=== PATIENT | female | born 1970 | race Caucasian/White ===

== ENCOUNTER → 2020-05-27 13:05 | Outpatient (CLI) | payer OTHER, SELFPAY ==
--- NOTE | ~2020-05-27 | MM_ITS ---
EXAMINATION: MM screening [facility] BI w ricky HISTORY: Screening TECHNIQUE: Craniocaudal and mediolateral oblique 3-D tomosynthesis images were obtained and synthetic 2-D images were generated. CAD analysis was submitted and interpreted. COMPARISON: Comparison to multiple prior studies sequentially, with oldest reviewed study dated 07/12. BREAST PARENCHYMAL COMPOSITION: The breasts are heterogeneously dense, which may obscure small masses . FINDINGS: There is no evidence of suspicious mass, calcification, or architectural distortion to sugg est malignancy in either breast. There has been no suspicious interval change. IMPRESSION: 1. No mammographic evidence of malignancy. 2. Recommend routine screening mammography in one year. BI-RADS Category 1: Negative Reviewed, dictated and finalized at location D. [employer]
== END ==
PROVIDERS: Visit Provider Obstetrics & Gynecology
DX: Z12.31 Encounter for screening mammogram for malignant neoplasm of breast (principal)
CPT/HCPCS: 77063; 77067

== ENCOUNTER 2020-10-02 12:54 | Outpatient (RCR) | payer OTHER, SELFPAY ==
[2020-10-02] MEDS: diphenhydrAMINE HCl CAP 25 MG CAPSULE PO (13:26)
[2020-10-02] MEDS: ACETAMINOPHEN 325 MG TABLET 650 MG PO (13:26)
[2020-10-02] MEDS: FAMOTIDINE 20 MG TABLET PO (13:26)
[2020-10-02 13:34] VITALS: BP 107/64; PULSE 97; RESP 16; TEMP 36.9; O2SAT 95
[2020-10-02 15:35] VITALS: BP 117/72; PULSE 85; RESP 16; TEMP 36.8; O2SAT 95
--- NOTE | 2020-10-02 15:40 | PC.NURSE ---
Patient provided with discharge instructions and drug fact sheet prior to discharge. No questions at this time.
--- NOTE | 2020-10-05 08:42 | PC.NURSE ---
RN spoke with patient this morning regarding infusion from Monday10/02/20. She reports she is feeling better and had no side effects from treatment. She will be seeing her primary care provider for a follow up today on 10/05/20.
== END 2020-10-02 15:59 | disposition home or self-care (01) ==
LOC: AMCINF 12:54
PROVIDERS: PCP Internal Medicine; Visit Provider Internal Medicine Hematology & Oncology
DX: Z23 Encounter for immunization (principal); U07.1 COVID-19
CPT/HCPCS: A9270; J7050; M0243

== ENCOUNTER → 2021-01-05 16:07 | Outpatient (REF) | payer OTHER, SELFPAY | LOC: ANHLAB 16:07 | PROVIDERS: PCP Internal Medicine; Visit Provider Nurse Practitioner | DX: D22.71 Melanocytic nevi of right lower limb, including hip (principal) | CPT/HCPCS: 88304; 88305 ==

== ENCOUNTER → 2021-06-23 13:34 | Outpatient (CLI) | payer OTHER, SELFPAY ==
--- NOTE | ~2021-06-23 | MM_ITS ---
EXAMINATION: MM screening [facility] BI w ricky HISTORY: Screening mammogram TECHNIQUE: Craniocaudal and mediolateral oblique 3-D tomosynthesis images were obtained and synthetic 2-D images were generated. CAD analysis was submitted and interpreted. COMPARISON: 05/27/2020, 04/05/2018, 12/05/2017 BREAST PARENCHYMAL COMPOSITION: There are scattered areas of fibroglandular density. FINDINGS: There is no suspicious mass, calcification, or architectural distortion to suggest malignan cy in either breast. There has been no suspicious interval change. IMPRESSION: 1. No mammographic evidence of malignancy. 2. Recommend routine screening mammography in one year. BI-RADS Category 1: Negative Reviewed, dictated and finalized at location A.
== END ==
PROVIDERS: Visit Provider Obstetrics & Gynecology
DX: Z12.31 Encounter for screening mammogram for malignant neoplasm of breast (principal)
CPT/HCPCS: 77063; 77067

== ENCOUNTER → 2022-09-30 16:16 | Outpatient (CLI) | payer OTHER, SELFPAY ==
--- NOTE | ~2022-09-30 | MM_ITS ---
EXAMINATION: MM screening [facility] BI w ricky HISTORY: Screening mammogram TECHNIQUE: Craniocaudal and mediolateral oblique 3-D tomosynthesis images were obtained and synthetic 2-D images were generated. CAD analysis was submitted and interpreted. COMPARISON: 06/23/2021, 05/27/2020, 01/03/2019 BREAST PARENCHYMAL COMPOSITION: There are scattered areas of fibroglandular density. FINDINGS: No suspicious mass, calcification, or architectural distortion are identified in either john ast to suggest malignancy. There has been no suspicious interval change. IMPRESSION: 1. No mammographic evidence of malignancy. 2. Recommend routine screening mammography in one year. BI-RADS Category 1: Negative Reviewed, dictated and finalized at location A.
== END ==
PROVIDERS: PCP Obstetrics & Gynecology; Visit Provider Obstetrics & Gynecology
DX: Z12.31 Encounter for screening mammogram for malignant neoplasm of breast (principal)
CPT/HCPCS: 77063; 77067

== ENCOUNTER 2023-10-19 16:09 | Outpatient (CLI) | payer OTHER, SELFPAY ==
--- NOTE | ~2023-10-19 | MM_ITS ---
EXAMINATION: MM screening [facility] BI w ricky HISTORY: Screening TECHNIQUE: Craniocaudal and mediolateral oblique 3-D tomosynthesis images were obtained and synthetic 2-D images were generated. CAD analysis was submitted and interpreted. COMPARISON: Comparison to multiple prior studies sequentially, with oldest reviewed study dated 10/07. BREAST PARENCHYMAL COMPOSITION: Dense: The breasts are heterogeneously dense, which may obscure small masses FINDINGS: There is no evidence of suspicious mass, calcification, or architectural distortion to sugg est malignancy in either breast. There has been no suspicious interval change. IMPRESSION: 1. No mammographic evidence of malignancy. 2. Recommend routine screening mammography in one year. BI-RADS Category 1: Negative Reviewed, dictated and finalized at location B.
== END 2023-10-19 16:10 ==
LOC: MICIMG 16:10
PROVIDERS: PCP Physician Assistant Medical; Visit Provider Obstetrics & Gynecology
DX: Z12.31 Encounter for screening mammogram for malignant neoplasm of breast (principal)
CPT/HCPCS: 77063; 77067

== ENCOUNTER 2024-01-16 17:53 | Emergency (ER) | payer OTHER, SELFPAY ==
--- NOTE | ~2024-01-16 | CT_ITS ---
EXAMINATION: CT abdomen pelvis wo con DATE: 01/16/2024 19:19 INDICATION: Right flank pain. Urinary tract infection. Hematuria. TECHNIQUE: Computed tomography (CT) of the abdomen and pelvis was performed without intravenous contr ast. Automated exposure control and iterative reconstruction technique were employed. The dose-length product was 686.12 mGy-cm. COMPARISON: None FINDINGS: Lung bases are clear. Heart size is normal. No pericardial or pleural effusion. 2 cm centrally low at tenuation lesion with peripheral discontiguous rim calcification at the dome of the liver. No other h epatic lesions identified. Gallbladder, pancreas, bilateral adrenal glands and kidneys are normal. No urolithiasis or hydronephrosis. Splenosis in the left upper quadrant. Bowels including appendix are normal. Decompressed bladder, anteverted uterus and bilateral adnexa are unremarkable. No free intrap eritoneal gas or fluid. No pathologically enlarged abdominal or pelvic lymphadenopathy. Small fat-con taining umbilical hernia. IMPRESSION: 1. No urolithiasis or acute intra-abdominal/pelvic process. 2. Nonspecific 2 cm centrally low attenuation lesion with discontiguous coarse peripheral calcificati ons at the dome of the liver. The pattern of calcification would favor sequela of parasitic infection , prior hematoma or potentially cystadenoma/cystadenocarcinoma although other neoplasms cannot be abs olutely excluded. Would recommend further evaluation with pre and postcontrast MRI. 3. Small fat-containing umbilical hernia. 4. Splenosis which suggests prior splenectomy or trauma. Correlate with clinical history. Reviewed, dictated and finalized at location A. IMPRESSION: 1. No urolithiasis or acute intra-abdominal/pelvic process. 2. Nonspecific 2 cm centrally low attenuation lesion with discontiguous coarse peripheral calcifications at the dome of the liver. The pattern of calcificatio n would favor sequela of parasitic infection, prior hematoma or potentially cys tadenoma/cystadenocarcinoma although other neoplasms cannot be absolutely exclu ded. Would recommend further evaluation with pre and postcontrast MRI. 3. Small fat-containing umbilical hernia. 4. Splenosis which suggests prior splenectomy or trauma. Correlate with clinica l history.
[2024-01-16 17:55] VITALS: BP 142/87; PULSE 81; RESP 16; TEMP 36.3; O2SAT 99
[2024-01-16 19:37] LABS: BEDSIDEPREGUCG Negative (Negative)
--- NOTE | 2024-01-16 19:39 | ED.FEMALEGU ---
HPI - Female Genitourinary General Chief complaint: Urogenital-Female Stated complaint: KIDNEY STONE Time Seen by Provider: 01/16/24 18:57 Source: patient Mode of arrival: ambulatory Limitations: no limitations History of Present Illness HPI Narrative: Patient is a 53-year-old female, with PMH of splenectomy r/t ITP as a teenager, who presents the ED with report of R flank pain and UTI symptoms. Patient reports she has been having intermittent right-sided flank pain over the last 2-3 weeks. She notes history of 1 previous kidney stone 13 years ago and states pain is not as severe as it was then. It does radiate around slightly to her right lower abdomen. She then developed symptoms of a UTI this morning including dysuria, urgency, frequency. Hx of previous UTIs. She left a urine sample with her primary care doctor and was noted to have blood in the sample. Sent here for further evaluation and to rule out kidney stone. Denies nausea, vomiting, bowel issues, fevers. Related Data Home Medications Medication Instructions Recorded Confirmed aspirin 81 mg tablet,delayed 81 mg PO DAILY 11/02/21 05/18/23 release (Adult Low Dose Aspirin) Allergies Allergy/AdvReac Type Severity Reaction Status Date / Time prochlorperazine Allergy Mild TONGUE Verified 01/16/24 17:56 SWELLING Review of Systems Review of Systems: All systems reviewed & are unremarkable except as noted in HPI. All systems reviewed & are unremarkable except as noted in HPI and below PMFSH Surgical History Surgical History History of section History of splenectomy Family History Family History Father Hypertension Family history of malignant neoplasm of kidney Mother Family history of hypothyroidism Family history of malignant neoplasm of kidney Social History Social History Smoking status: Never smoker Exam Narrative: GENERAL: Well appearing, well-nourished, non-toxic, in no acute distress. HEAD: Normocephalic, atraumatic. RESPIRATORY: Airway patent, respirations nonlabored. Clear to auscultation bilaterally, no rales, rhonchi, wheezing. CARDIOVASCULAR: Regular rate and rhythm ABDOMINAL: Soft, nontender, nondistended. Normoactive BS. Mild positive CVA tenderness on right. MUSCULOSKELETAL: Moves all extremities. No gross deformities. SKIN: Warm, dry, normal color. NEURO: A&O X3. Speech clear. PSYCHIATRIC: Appropriate mood and affect. Normal interaction. Course Vital Signs Vital signs: Vital Signs Temperature 97.4 F L 01/16/24 17:55 Pulse Rate 81 01/16/24 17:55 Respiratory Rate 16 01/16/24 17:55 Blood Pressure 142/87 H 01/16/24 17:55 Pulse Oximetry 99 01/16/24 17:55 Temperature 97.4 F L 01/16/24 17:55 Pulse Rate 81 01/16/24 17:55 Respiratory Rate 16 01/16/24 17:55 Blood Pressure 142/87 H 01/16/24 17:55 Pulse Oximetry 99 01/16/24 17:55 MDM - Female Genitourinary MDM Narrative Medical decision making narrative: Patient presented to ED with several week history of right-sided flank pain, UTI symptoms since this morning. History of previous UTIs. Vital signs are stable upon arrival. She is afebrile here. In no acute distress. Did not want anything for pain. Basic laboratory studies showing minimal leukocytosis of 10.6. Mild thrombocytosis, consistent with previous records. CMP unremarkable. Urinalysis consistent with infection. Sent for cx. Ceftriaxone given in the ED. Will d/c on keflex. CT scan of abdomen/pelvis obtained and without acute injury or abdominal findings. No ureterolithiasis. No evidence of pyelonephritis. Does show abnormality of liver which may be sequela of previous infection/trauma versus cyst versus neoplasm, recommended MRI. Made patient aware of this. Patient does have h
[2024-01-16 19:47] LABS: Basophils Absolute Auto 0.1 K/mm3 (0.0-0.1); Basophils Percent Auto 0.8 % (0.2-1.2); Eosinophils Absolute Auto 0.3 K/mm3 (0-0.3); Eosinophils Percent Auto 2.4 % (0-4.4); Hematocrit 40.5 % (37.0-47.0); Hemoglobin 13.4 g/dL (12.0-15.0); Immature Granulocyte Absolute 0.03 K/mm3 (0.00-0.031); Immature Granulocyte Percent A 0.3 % (0-0.5); Lymphocytes Absolute Auto 4.15 K/mm3 (0.9-3.2); Mean Corpuscular HGB Conc 33.1 g/dl (32-36); Mean Corpuscular Hemoglobin 31.2 pg (26-34); Mean Corpuscular Volume 94.4 fl (80-100); Mean Platelet Volume 9.5 fl (7.4-10.4); Monocytes Percent Auto 9.2 % (2.6-8.5); Neutrophils Absolute Auto 5.1 K/mm3 (1.3-6.7); Neutrophils Percent Auto 48.3 % (45.5-73.1); Platelet Count Result 479 k/mm3 (150-375); Red Blood Count 4.29 M/mm3 (4.2-5.4); Red Cell Distribution Width 13.9 % (11.5-14.5); White Blood Count 10.6 K/mm3 (4.5-10.0)
[2024-01-16 20:07] LABS: Alanine Aminotransferase 20 U/L (6-35); Albumin Level 4.2 g/dL (3.5-5.1); Alkaline Phosphatase 78 U/L (38-126); Anion Gap 7 mmol/L (4-12); Aspartate Amino Transferase 23 U/L (14-36); Bilirubin,Total 0.3 mg/dL (0.2-1.3); Blood Urea Nitrogen 18 mg/dL (7-17); Calcium 9.6 mg/dL (8.4-10.2); Carbon Dioxide 27 mmol/L (22-30); Chloride 103 mmol/L (98-107); Estimated CRCL calculation 81 ml/min; Estimated Glomerular Filt Rate > 60; Glucose 85 mg/dL (65-110); Potassium 3.9 mmol/L (3.4-5.0); Sodium 137 mmol/L (137-145)
[2024-01-16 20:09] LABS: Add Urine Microscopic? YES; Appearance Urine Clear (Clear); Bacteria Urine None Seen /hpf; Bilirubin Urine 1+ (Negative); Blood Urine Negative (Negative); Color Urine Dark Yellow (Yellow); Glucose Urine UA Negative (Negative); Ketones Urine Negative (Negative); Leukocyte Esterase Ur 1+ LEU/UL (Negative); Need Manual Microscopic Reviewed; Nitrate Urine Positive (Negative); Non Pathogenic Casts 0-2; Protein Urine Negative (Negative); RBC Urine 0-2 /hpf (0-2); Specific Grav Ur 1.014 (1.001-1.035); Squamous Epithelial Cell Urine None Seen /hpf (Few); WBC Urine 21-50 /hpf (0-3); pH Urine 5.5 (5.0-9.0)
[2024-01-16 21:35] VITALS: BP 136/89; PULSE 74; RESP 18; O2SAT 100
== END 2024-01-16 21:35 | disposition home or self-care (01) ==
PROVIDERS: Emergency Provider Physician Assistant; PCP Physician Assistant Medical
DX: N30.00 Acute cystitis without hematuria (principal); K76.9 Liver disease, unspecified; Z87.442 Personal history of urinary calculi; Z90.81 Acquired absence of spleen; K42.9 Umbilical hernia without obstruction or gangrene; Z79.82 Long term (current) use of aspirin; Z79.899 Other long term (current) drug therapy
CPT/HCPCS: 36415; 74176; 80053; 81001; 81025; 85025; 85055; 87086; 96365; 99284; J0696

== ENCOUNTER 2024-02-09 12:58 | Outpatient (CLI) | payer OTHER, SELFPAY ==
--- NOTE | ~2024-02-09 | MR_ITS ---
EXAMINATION: MR abdomen wo/w con DATE: 02/09/2024 13:45 INDICATION: Liver mass. TECHNIQUE: Magnetic resonance imaging (MRI) of the abdomen was performed without and with 18 mL Multi Raz intravenous contrast. COMPARISON: CT abdomen and pelvis 01/16/2024 FINDINGS: There is a 15 mm peripherally calcified cyst in right hepatic lobe. There is splenosis in left upper quadrant. There is cystic thickening of the fundus of the gallbladder, consistent with adenomyomatosi s. The pancreas, adrenal glands, and kidneys are normal. There is an umbilical hernia containing fat. There are no dilated loops of bowel. There are no pathologically enlarged lymph nodes. There is no f ree intraperitoneal fluid. IMPRESSION: 1. 15 mm peripherally calcified cyst in right hepatic lobe, likely an old hematoma or old infection. Reviewed, dictated and finalized at location A. [employer]TER IMPRESSION: 1. 15 mm peripherally calcified cyst in right hepatic lobe, likely an old hemat migdalia or old infection.
== END 2024-02-09 12:59 | disposition home or self-care (01) ==
LOC: MICIMG 12:58
PROVIDERS: PCP Physician Assistant Medical; Visit Provider Physician Assistant Medical
DX: K76.9 Liver disease, unspecified (principal)
CPT/HCPCS: 74183; A9577

== ENCOUNTER 2024-10-18 12:52 | Outpatient (CLI) | payer OTHER, SELFPAY ==
--- NOTE | ~2024-10-18 | MR_ITS ---
EXAMINATION: MR brain/brain stem wo/w con DATE: 10/18/2024 13:42 INDICATION: Ocular pain TECHNIQUE: Magnetic resonance imaging (MRI) of the brain and brainstem was performed without and with 20 mL Multihance intravenous contrast. Sequences included sagittal and axial T1-weighted SE, axial d iffusion-weighted FS SE, axial T2*-weighted GRE, axial T2-weighted FLAIR, and axial T2-weighted FSE. Postcontrast axial and coronal T1-weighted SE was obtained. Apparent diffusion coefficient (ADC) maps were created. COMPARISON: None. FINDINGS: There are no areas of restricted diffusion to suggest acute infarction. No intracranial hemorrhage or abnormal intracranial mass lesion. There are few small foci of nonspecific increased white matter T2 -weighted signal intensity in the bilateral frontal lobes which is within normal limits for age and l ikely sequela of chronic small vessel ischemic disease. There are no intraparenchymal signal abnormal ities seen on the other pulse sequences. The ventricles are symmetric and normal in size. There are n o abnormal extra-axial fluid collections. Flow voids are seen in the cerebral arteries on the T2-weig hted sequences consistent with their expected patency. Visualized orbits and soft tissues are unremar kable. There are no areas of abnormal enhancement on the post contrast images. IMPRESSION: 1. Normal for age brain MR with a a few small foci of nonspecific cerebral white matter T2 hyperinten sity in the bilateral frontal lobes, likely sequela of chronic small vessel ischemic disease.. Reviewed, dictated and finalized at location A. IMPRESSION: 1. Normal for age brain MR with a a few small foci of nonspecific cerebral whit e matter T2 hyperintensity in the bilateral frontal lobes, likely sequela of ch ronic small vessel ischemic disease..
== END 2024-10-18 12:53 | disposition home or self-care (01) ==
PROVIDERS: PCP Physician Assistant Medical; Visit Provider Physician Assistant Medical
DX: H57.10 Ocular pain, unspecified eye (principal); R51.9 Headache, unspecified
CPT/HCPCS: 70553; A9577

== ENCOUNTER 2024-10-25 14:20 | Outpatient (CLI) | payer OTHER, SELFPAY ==
--- NOTE | ~2024-10-25 | MM_ITS ---
EXAMINATION: MM screening [facility] BI w ricky HISTORY: Screening TECHNIQUE: Craniocaudal and mediolateral oblique 3-D tomosynthesis images were obtained and synthetic 2-D images were generated. CAD analysis was submitted and interpreted. COMPARISON: Comparison to multiple prior studies sequentially, with oldest reviewed study dated 12/05. BREAST PARENCHYMAL COMPOSITION: Dense: The breasts are heterogeneously dense, which may obscure small masses FINDINGS: There is no evidence of suspicious mass, calcification, or architectural distortion to sugg est malignancy in either breast. There has been no suspicious interval change. IMPRESSION: 1. No mammographic evidence of malignancy. 2. Recommend routine screening mammography in one year. BI-RADS Category 1: Negative Reviewed, dictated and finalized at location B.
== END 2024-10-25 14:21 | disposition home or self-care (01) ==
LOC: MICIMG 14:21
PROVIDERS: PCP Obstetrics & Gynecology; Visit Provider Obstetrics & Gynecology
DX: Z12.31 Encounter for screening mammogram for malignant neoplasm of breast (principal)
CPT/HCPCS: 77063; 77067